=== PATIENT | female | born 1935 | race Caucasian/White ===

== ENCOUNTER → 2016-07-11 | Outpatient (CLI) | payer OTHER ==
[~2016-07-11] MED LIST: GLC5500 PO; GLCSR500 PO; LVNIS80 SQ; METO25TA3 PO; METR0.754 TOP; MULT-845 PO; NRN300 PO; SIMV20TA2 PO; SITA50TA PO; SOLI10TA2 PO
--- NOTE | 2016-07-11 13:35 | MAMMOGRAPHY REPORT ---
UNILATERAL RIGHT DIGITAL DIAGNOSTIC MAMMOGRAM TOMOSYNTHESIS WITH CAD AND TARGETED RIGHT ULTRASOUND: 07/11/2016 CLINICAL HISTORY: 81-year-old woman presents for follow-up of the probably benign circumscribed subc entimeter mass in the 8:00 to 9:00 middle one third of the right breast, and other incidental subcen timeter cystic-appearing masses seen in the right breast on ultrasound. TECHNIQUE: Right breast tomosynthesis in addition to standard 2D mammography was performed. Current study was also evaluated with a Computer Aided Detection (CAD) system. COMPARISON: Comparison is made to exams dated: 01/02/2016 mammogram, 01/02/2016 ultrasound, 07/04/2015 mammogram, 12/30/2014 mammogram, 12/15/2014 mammogram, and 12/14/2013 mammogram - [facility]. BREAST COMPOSITION: There are scattered areas of fibroglandular density in the right breast. FINDINGS: There is slight increased size and increased prominence of a circumscribed oval mass in t he 8:00 to 9:00 middle one third of the right breast. This mass currently measures 6.9 x 4.6 x 4.2 mm mammographically, and previous measurements were 4.5 x 4.2 x 4.0 mm measured in the same plane. Therefore this is indeterminate and further evaluation with ultrasound was performed. There are sca ttered benign-appearing coarse calcifications and vascular calcifications in the right breast. No n ew suspicious microcalcifications or focal areas of architectural distortion are identified. Real-time high-resolution sonographic evaluation was performed in the 8:00 to 9:00 axes and lateral right breast. In the 8:00 breast, 6 cm from the nipple, there is an oval parallel circumscribed ane choic benign simple cyst measuring 4.0 x 3.0 x 3.6 mm, which previously measured 3.6 x 3.0 x 3.8 mm. In the 9:00 breast, 2 cm from the nipple an oval parallel circumscribed anechoic cyst is seen memo uring 3.1 x 2.2 x 3.7 mm, previously measured 3.4 x 2.6 x 3.6 mm, and there is an adjacent hypoechoi c cystic-appearing mass measuring 2.8 x 2.9 x 2.4 mm. This hypoechoic mass previously measured 2.8 x 2.4 x 3.1 mm and is considered unchanged. A third anechoic simple cyst is identified in the 10:00 right breast, 1 cm from the nipple, measuring 3.3 x 3.3 x 3.1 mm. A skin BB was placed overlying the cyst in the 8:00 right breast, 6 in meters from the nipple, and a circular mole marker was placed overlying the cyst in the 9:00 right breast, 2 cm from the nipple. Repeat right CC and MLO tomosynthesis images were performed. The repeat views demonstrate alignmen t of the BB with the cyst in the 8:00 axis, confirming mammographicsonographic correlation for this benign simple cyst. No further workup is needed at this time. Advise follow-up at time of next an nual screening mammogram (due in December 2016). IMPRESSION: ACR BI-RADS CATEGORY 2: BENIGN, TARGETED ULTRASOUND ACR BI-RADS CATEGORY 2: BENIGN A circumscribed oval 4 mm mass in the 8:00 right breast has slightly increased in size mammographica lly, but correlates with a benign simple cyst on ultrasound. A few other scattered cysts are seen i n the 9:00 and 10:00 axis of the right breast on ultrasound. There is no mammographic or targeted s onographic evidence of malignancy. Return to annual mammogram screening schedule is recommended. Th e patient has been verbally notified of the results. Approximately 10% of breast cancers are not detected with mammography. A negative mammographic repor t should not delay biopsy if a clinically suggestive mass is present. Jovita Mcallister M.D. ay/:07/11/2016 12:26:36 Maple Syrup Maker: Ailin ASTUDILLO(Marcio)(M), [facility] letter sent: Normal 1/2 BI-RADS Code: ACR BI-RADS Category 2: Benign Ultrasound BI-RADS: ACR BI-RADS Category 2: Benign
== END | disposition home or self-care (01) ==
LOC: C.MAMM 09:47
PROVIDERS: ATTEND Internal Medicine
DX: N63 Unspecified lump in breast (principal); N60.11 Diffuse cystic mastopathy of right breast

== ENCOUNTER → 2016-07-18 | Outpatient (CLI) | payer OTHER ==
[2016-07-18 16:11] LABS: BASO % 0.5 %; BASO ABS # 0.04 K/uL (0-0.2); COMPLETE YES; EOS % 1.5 %; HEMATOCRIT 34.4 % (37-47); IG% 0.3 %; LYMPH % 32.2 %; LYMPH ABS # 2.42 K/uL (1.2-3.4); MEAN CELL VOLUME 73.2 fL (80-100); MEAN CORPUSCULAR HEMOGLOBIN 23.8 pg (25-34); MEAN CORPUSCULAR HGB CONC 32.6 g/dl (32-36); MEAN PLATELET VOLUME 10.6 fL (7.4-10.4); MONO % 12.4 %; NEUT % 53.1 %; PLATELET COUNT 349 K/uL (130-400); WHITE BLOOD COUNT 7.52 K/uL (4.8-10.8)
[2016-07-18 16:38] LABS: ALB/GLOB RATIO 0.9 (0.9-2); ALKALINE PHOSPHATASE 72 U/L (45-117); ALT/SGPT 99 U/L (12-78); AST/SGOT 114 U/L (15-37); BLOOD UREA NITROGEN 11 mg/dl (7-18); BUN/CREATININE RATIO 19.8 (10-20); CALCIUM 9.5 mg/dl (8.5-10.1); CARBON DIOXIDE 27 mmol/L (21-32); CHLORIDE 96 mmol/L (98-107); CREATININE 0.57 mg/dl (0.60-1.20); GLUCOSE 88 mg/dl (70-99); POTASSIUM 3.9 mmol/L (3.5-5.1); SODIUM 136 mmol/L (136-145)
[2016-07-20 14:35] LABS: AFP TUMOR MARKER SERUM 14448.2 NG/ML (<6.1)
--- NOTE | 2016-08-02 07:04 | CODING QUERY NO DIAGNOSIS ---
: 1935 TREATMENT RENDERED WITHOUT A DIAGNOSIS To promote full compliance with coding requirements relating to patient care, physician participation is requested in all cases of motorcycle engine assembler uncertainty. Please assist us with providing a diagnosis/symptom for the test(s) below: A diagnosis/symptom was not documented on your Order. A valid diagnosis/symptom is required to bill all insurances. Please remember that we are unable to code a diagnosis of rule out, probable, possible, questionable, or suspected. Tests that require a diagnosis: DOS: 07/18/16 * Comprehensive Metabolic Panel DIAGNOSIS: * AFP Tumor Marker, Serum DIAGNOSIS: * CBC W/ Auto Differential DIAGNOSIS: * LDH DIAGNOSIS: Provider Signature: Date: Thank you Supriya [facility] Information Management Once completed, please kindly fax back to [phone] For questions please call [phone]
== END | disposition home or self-care (01) ==
LOC: C.LAB1850 10:30
PROVIDERS: ATTEND Internal Medicine Infectious Disease
DX: R39.15 Urgency of urination (principal); Z87.440 Personal history of urinary (tract) infections

== ENCOUNTER → 2016-07-18 | Outpatient (CLI) | payer OTHER ==
[~2016-07-18] MED LIST changes: +OPTIRAY 320 IV PRN
--- NOTE | 2016-07-18 20:24 | DIAGNOSTIC IMAGING REPORT ---
CT OF THE ABDOMEN AND PELVIS WITH CONTRAST CLINICAL HISTORY: Hepatocellular carcinoma. COMPARISON STUDY: CT of the abdomen and pelvis March 28, 2016, MRI of the liver April 11, 2016 and right upper quadrant ultrasound April 11, 2016. TECHNIQUE: Following IV administration of 117 mL of Optiray-320, axial images of the abdomen and pelvis were obtained from the lung bases to the proximal femurs. Images were reviewed in the axial, sagittal, and coronal planes. IV contrast was administered without complication. Oral contrast was administered. CT DOSE: 443.02 mGy.cm FINDINGS: A 5 mm subpleural nodule within the right middle lobe is unchanged since CT of April 22, 2016. This is benign. There is no pneumatosis, free air or portal venous gas. There is extensive hyperdense material which likely reflects embolization material within the right hepatic lobe. The previously described right hepatic lobe mass is again demonstrated, measuring approximately 9.1 cm. This is similar in size to MRI of April 11, 2016. Numerous satellite lesions are noted. These have increased in size and number since MRI of April 11, 2016 and are most evident within the left hepatic lobe, including a 1.6 cm lateral segment lesion. The number and size of these lesions has significantly increased since MRI of April 11, 2016. There is no biliary ductal dilatation. Images of the spleen, adrenal glands and kidneys are normal. There is a moderate amount of stool within the colon. There is no evidence for a bowel obstruction. There are injection sites within the subcutaneous tissues of the anterior abdominal wall. No suspicious osseous lesions are identified. IMPRESSION: Findings consistent with interval embolization of the dominant right hepatic lobe mass. The size of the mass has likely increased since CT of March 28, 2016 and is either stable or slightly increased since MRI of April 11, 2016. However, the size and number of innumerable satellite hypervascular lesions have significantly increased since prior MRI consistent with disease progression with multifocal hepatocellular carcinoma. Electronically signed by: Clark Vigil M.D. 07/18/2016 8:22 PM Dictated Date/Time: 07/18/2016 5:06 PM
== END | disposition home or self-care (01) ==
LOC: C.CTS 14:48
PROVIDERS: ATTEND Internal Medicine Hematology & Oncology
DX: C22.0 Liver cell carcinoma (principal); R39.15 Urgency of urination; Z87.440 Personal history of urinary (tract) infections

== ENCOUNTER → 2016-08-06 | Outpatient (CLI) | payer OTHER ==
[~2016-08-06] MED LIST changes: -OPTIRAY 320 IV PRN
[2016-08-06 11:05] LABS: BASO % 0.9 %; BASO ABS # 0.05 K/uL (0-0.2); EOS % 2.6 %; HEMATOCRIT 35.6 % (37-47); IG% 0.3 %; LYMPH % 26.6 %; LYMPH ABS # 1.56 K/uL (1.2-3.4); MEAN CELL VOLUME 73.6 fL (80-100); MEAN CORPUSCULAR HEMOGLOBIN 22.9 pg (25-34); MEAN CORPUSCULAR HGB CONC 31.2 g/dl (32-36); MEAN PLATELET VOLUME 11.5 fL (7.4-10.4); MONO % 11.4 %; NEUT % 58.2 %; PLATELET COUNT 335 K/uL (130-400); RED BLOOD COUNT 4.84 M/uL (4.2-5.4); WHITE BLOOD COUNT 5.87 K/uL (4.8-10.8)
[2016-08-06 11:15] LABS: ALT/SGPT 47 U/L (12-78); AST/SGOT 34 U/L (15-37); BLOOD UREA NITROGEN 9 mg/dl (7-18); CARBON DIOXIDE 30 mmol/L (21-32); CHLORIDE 101 mmol/L (98-107); CREATININE 0.67 mg/dl (0.60-1.20); GLUCOSE 209 mg/dl (70-99); SODIUM 139 mmol/L (136-145)
[2016-08-06 11:18] LABS: ALB/GLOB RATIO 0.9 (0.9-2); ALKALINE PHOSPHATASE 51 U/L (45-117)
[2016-08-06 15:19] LABS: ANISOCYTOSIS PRESENT; COMPLETE YES; ECHINOCYTES 1+
== END | disposition home or self-care (01) ==
LOC: C.LABBC 08:37
PROVIDERS: ATTEND Internal Medicine Hematology & Oncology
DX: C22.0 Liver cell carcinoma (principal)

== ENCOUNTER → 2016-08-15 | Outpatient (CLI) | payer OTHER ==
[~2016-08-15] MED LIST changes: +GADOXETATE DISODIUM (NON-WT BASED PROCEDURE) IV PRN
--- NOTE | 2016-08-15 14:42 | DIAGNOSTIC IMAGING REPORT ---
MRI LIVER COMBO CLINICAL HISTORY: HEPATOCELLULAR CA TECHNIQUE: Imaging was performed prior to and following IV contrast injection (10 cc intravenous Eovist.) COMPARISON STUDY: CT scan dated 07/18/2016, MRI dated 04/11/2016 FINDINGS: No adrenal, renal, splenic, or pancreatic masses are visualized. There are in excess of 40 T2 bright space-occupying hepatic masses. The largest mass is located within the central liver measuring 6.4 cm. The masses are markedly hyper vascular on arterial phase imaging. The masses demonstrate rapid washout. The findings are consistent with marked progression in multifocal hepatocellular carcinoma. There is no evidence of pathologic ductal dilatation. There is mild artifact secondary to prior embolization. IMPRESSION: Marked progression in the multifocal hepatocellular carcinoma. Electronically signed by: Otto Moncada M.D. 08/15/2016 2:40 PM Dictated Date/Time: 08/15/2016 2:32 PM
== END | disposition home or self-care (01) ==
LOC: C.MRI 12:53
PROVIDERS: ATTEND Internal Medicine Hematology & Oncology
DX: C22.0 Liver cell carcinoma (principal)

== ENCOUNTER → 2016-10-29 | Outpatient (CLI) | payer OTHER ==
[~2016-10-29] MED LIST changes: -GADOXETATE DISODIUM (NON-WT BASED PROCEDURE) IV PRN
[2016-10-29 17:32] LABS: URINE APPEARANCE TURBID (CLEAR); URINE BILIRUBIN NEG (NEG); URINE COLOR DK YELLOW; URINE EPITHELIAL CELL AUTO >30 /lpf (0-5); URINE NITRITE NEG (NEG); URINE SPECIFIC GRAVITY 1.021 (1.000-1.030); UROBILINOGEN NEG (NEG)
[2016-10-29 17:37] LABS: MANUAL MICROSCOPIC REQUIRED? NO; REVIEW REQ? YES
== END | disposition home or self-care (01) ==
LOC: C.LAB1850 15:29
PROVIDERS: ATTEND Physician Assistant
DX: R35.0 Frequency of micturition (principal)

== ENCOUNTER → 2017-01-10 | Outpatient (CLI) | payer OTHER | END | disposition home or self-care (01) | LOC: C.LAB1850 14:51 | PROVIDERS: ATTEND Internal Medicine | DX: R19.7 Diarrhea, unspecified (principal) ==

== ENCOUNTER → 2017-03-27 | Outpatient (CLI) | payer OTHER ==
[2017-03-27 13:29] LABS: BASO % 0.6 %; BASO ABS # 0.04 K/uL (0-0.2); EOS % 0.8 %; HEMATOCRIT 29.5 % (37-47); IG% 0.3 %; LYMPH % 22.7 %; LYMPH ABS # 1.62 K/uL (1.2-3.4); MEAN CELL VOLUME 72.3 fL (80-100); MEAN CORPUSCULAR HEMOGLOBIN 22.3 pg (25-34); MEAN CORPUSCULAR HGB CONC 30.8 g/dl (32-36); MEAN PLATELET VOLUME 10.5 fL (7.4-10.4); NEUT % 64.6 %; PLATELET COUNT 633 K/uL (130-400); RED BLOOD COUNT 4.08 M/uL (4.2-5.4); WHITE BLOOD COUNT 7.15 K/uL (4.8-10.8)
[2017-03-27 13:54] LABS: ALT/SGPT 97 U/L (12-78); BLOOD UREA NITROGEN 27 mg/dl (7-18); BUN/CREATININE RATIO 36.3 (10-20); CALCIUM 8.4 mg/dl (8.5-10.1); CARBON DIOXIDE 30 mmol/L (21-32); CHLORIDE 93 mmol/L (98-107); CHOLESTEROL 253 mg/dl (0-200); CREATININE 0.75 mg/dl (0.60-1.20); GLUCOSE 148 mg/dl (70-99); SODIUM 135 mmol/L (136-145); TRIGLYCERIDES 89 mg/dl (0-150); VERY LOW DENSITY LIPOPROT CALC 18 mg/dl
[2017-03-27 14:03] LABS: ANISOCYTOSIS PRESENT; COMPLETE YES; HYPOCHROMIA PRESENT; TARGET CELLS 1+
[2017-03-27 14:05] LABS: ALB/GLOB RATIO 0.6 (0.9-2); ALKALINE PHOSPHATASE 187 U/L (45-117); AST/SGOT 254 U/L (15-37); CHOLESTEROL/HDL RATIO 5.3; HDL CHOLESTEROL 48 mg/dl; LDL CHOLESTEROL CALCULATED 187 mg/dl
== END | disposition home or self-care (01) ==
LOC: C.LABBC 09:49
PROVIDERS: ATTEND Internal Medicine
DX: E11.9 Type 2 diabetes mellitus without complications (principal); C22.0 Liver cell carcinoma